=== PATIENT | female | born 1970 ===

== ENCOUNTER 2016-11-03 10:08 | Emergency (ER) | payer MEDICAID ==
[2016-11-03 10:09] VITALS: BMI 34.0
[2016-11-03 10:14] VITALS: BP 152/87; PULSE 70; RESP 20; TEMP 98.7; O2SAT 99
--- NOTE | 2016-11-03 11:10 | ED PDOC ---
Lower Extremity Pain/Injury Time Seen by Provider: 11/03/16 10:19 Chief Complaint (Nursing): Lower Extremity Problem/Injury History Per: Patient Additional Complaint(s): Pt. states since yesterday she's had atraumatic L ankle and foot pain with ambulation. Pt. states she is an avid walker and according to her cell phone she takes approximately [id number] steps/day. Further states that she's been having L knee pain due to "arthritis" under the care of Dr. Pedroza ( orthopedist). Pt. states she is treated with cortisone injections in the knee along with physical therapy. Pt. is concerned she may have also developed arthritis in her ankle. Denies calf pain, numbness, tingling, trauma, rash. Past Medical History Reviewed: Historical Data, Nursing Documentation, Vital Signs Vital Signs: Last Vital Signs Temp 98.7 F 11/03/16 10:14 Pulse 70 11/03/16 10:14 Resp 20 11/03/16 10:14 BP 152/87 H 11/03/16 10:14 Pulse Ox 99 11/03/16 10:14 - Medical History PMH: Arthritis, Asthma, Bipolar Disorder, Depression, Diabetes (just came off of meds. Told by Dr. Marie to control it without medications), Gall Bladder Disease, HTN, Hypercholesterolemia, Pneumonia, Sleep Apnea (NO C-PAP) Denies: Chronic Kidney Disease - Surgical History Surgical History: Cholecystectomy, Tonsillectomy - Family History Family History: States: Unknown Family Hx - Home Medications Home Medications: Ambulatory Orders Medication Instructions Recorded Mometasone/Formoterol [Dulera 200 2 inh INH BID 02/01/15 Mcg/5 Mcg Inhaler] Hydrochlorothiazide 25 mg PO DAILY #0 tablet 01/07/16 Loratadine [Claritin] 10 mg PO DAILY #0 tab 01/07/16 Losartan [Cozaar] 25 mg PO DAILY #30 tab 01/07/16 Montelukast [Singulair] 10 mg PO DAILY #0 tab 01/07/16 Ibuprofen [Motrin] 600 mg PO Q6H PRN #10 tab 03/18/16 Cyclobenzaprine [Flexeril] 1 tab PO DAILY 04/13/16 Home Med 1 unit PO DAILY 04/14/16 Lovastatin 40 mg PO DAILY 04/14/16 Topiramate 25 mg PO BID 04/14/16 Naproxen [Naprosyn] 500 mg PO BID PRN #20 tablet 06/04/16 Oseltamivir Phosphate [Tamiflu] 75 mg PO BID #10 capsule 06/04/16 Tamsulosin [Flomax] 0.4 mg PO DAILY #7 cap 07/04/16 oxyCODONE/Acetaminophen [Percocet 1 tab PO Q4 PRN #10 tab 07/04/16 5/325 mg Tab] Meloxicam [Mobic] 7.5 mg PO DAILY PRN #14 tab 11/03/16 - Allergies Allergies/Adverse Reactions: Allergies Allergy/AdvReac Type Severity Reaction Status Date / Time No Known Allergies Allergy Verified 04/13/16 09:06 Wells Criteria for PE - Wells Criteria for Pulmonary Embolism Clinical Signs and Symptoms of DVT: No P.E is #1 Diagnosis, or Equally Likely: No Heart Rate >100: No Immobilization at least 3 days;Surgery previous 4 weeks: No Previous, objectively diagnosed PE or DVT: No Hemoptysis: No Malignancy w/treatment within 6 months, or palliative: No Total Score: 0 Review of Systems ROS Statement: Except As Marked, All Systems Reviewed And Found Negative Musculoskeletal: Positive for: Foot Pain Physical Exam - Physical Exam Appears: Positive for: Well, Non-toxic, No Acute Distress Skin: Positive for: Normal Color, Warm. Negative for: Rash Pulses-Dorsalis Pedis (L): 2+ Pulses-Dorsalis Pedis (R): 2+ Extremity: Positive for: Normal ROM, Capillary Refill (< 2 seconds of L foot), Other (LLE: no tenderness, swelling, deformity, warmth, or erythema of all joints). Negative for: Pedal Edema (b/l), Calf Tenderness (b/l) Neurologic/Psych: Positive for: Alert, Oriented. Negative for: Aphasia, Facial Droop - ECG O2 Sat by Pulse Oximetry: 99 - Progress ED Course And Treament: Toradol 15mg IM given. L ankle and foot x-rays ordered. L ankle x-ray: First metatarsal-phalangeal joint mild osteoarthrosis L foot x-ray: Posterior calcaneal spur. Pt. instructed to f/u with her orthopedist for further evaluation. Disposition - Clinical Impression Clinical Impression: Osteoarthritis, Heel spur - Patient ED Disposition Is Patient to be Admitted: No - Disposition Disposition: Routine/Home Disposition Time: 12:09 Condition: STABLE Prescriptions: Meloxicam [Mobic] 7.5 mg PO DAILY PRN #14 tab PRN Reason: Pain, Mild (1-3) Instructions: Osteoarthritis (ED) Print Language: INDONESIAN
--- NOTE | 2016-11-03 11:44 | RAD ---
PROCEDURE: Left Foot Radiographs. HISTORY: pain COMPARISON: None. FINDINGS: BONES: No fracture. Accessory ossification center -os peroneum and os tibial externum JOINTS: First metatarsal-phalangeal joint mild osteoarthrosis SOFT TISSUES: Normal. OTHER FINDINGS: None. IMPRESSION: Accessory ossification centers as above. First metatarsal-phalangeal joint mild osteoarthrosis
--- NOTE | 2016-11-03 11:45 | RAD ---
PROCEDURE: Left Ankle Radiographs. HISTORY: pain COMPARISON: None FINDINGS: BONES: Posterior calcaneal spur -blending Achilles tendon insertional enthesophyte No fracture. JOINTS: Normal. No osteoarthritis. Ankle mortise maintained. Talar dome intact SOFT TISSUES: Normal. OTHER FINDINGS: None. IMPRESSION: Posterior calcaneal spur. Otherwise unremarkable
== END 2016-11-03 12:23 | disposition home or self-care (01) ==
LOC: SUPCPDRO 10:08 → H.ER 10:08
DX: M19.90 Unspecified osteoarthritis, unspecified site (principal); E11.9 Type 2 diabetes mellitus without complications; F31.9 Bipolar disorder, unspecified; J45.909 Unspecified asthma, uncomplicated